=== PATIENT | female | born 1940 | race Caucasian/White ===

== ENCOUNTER 2016-10-22 10:55 | Outpatient (CLI) | payer MEDICARE, BC ==
--- NOTE | 2016-10-23 13:27 | Mammography Report ---
DIGITAL SCREENING MAMMOGRAM: 10/22/2016 CLINICAL INDICATION: A 75-year-old for screening. COMPARISON: 09/2015, 07/2014, 07/2013, 07/2012, 06/2012, 06/2011, 06/2010, 05/2009. TECHNIQUE: Routine CC and MLO projections were obtained of the breasts. FINDINGS: The breasts again demonstrate scattered fibroglandular densities bilaterally. Coarse and punctate, typically benign calcifications are present. No suspicious masses, clustered microcalcific ations, or regions of architectural distortion are identified. IMPRESSION: BENIGN FINDINGS. RECOMMENDATION: Routine annual screening unless otherwise clinically indicated. BI-RADS category 2, benign findings. STANDARD QUALIFYING STATEMENTS 1. This examination was reviewed with the aid of Computer-Aided Detection (CAD). 2. A negative or benign imaging report should not delay biopsy if clinically suspicious findings are present. Consider surgical consultation if warranted. More than 5% of cancers are not identified by i maging. 3. Dense breasts may obscure an underlying neoplasm. JOB #: [id number] EXT JOB #:[id number]
== END 2016-10-22 10:56 | disposition home or self-care (01) ==
LOC: DI 10:55
PROVIDERS: ATTEND Obstetrics & Gynecology
DX: Z12.31 Encounter for screening mammogram for malignant neoplasm of breast (principal)
CPT/HCPCS: 77067

== ENCOUNTER 2016-11-16 08:25 | Outpatient (CLI) | payer MEDICARE, BC ==
--- NOTE | 2016-11-17 13:52 | DEXA Report ---
DEXA SCAN: 11/16/2016 CLINICAL INDICATION: Osteopenia. TECHNIQUE: Dual energy x-ray absorptiometry (DXA) was performed on a [employer] system. Regions measured are the AP spine, femoral neck, and, if needed, forearm. COMPARISON: None. In accordance with the International Society for Clinical Densitometry (ISCD) guidelines, data from previous exams may be reanalyzed using current recommendations and techniques. This is done to allow a more accurate basis for comparison with the current study. FINDINGS: The data for the lumbar spine is as follows: REGION BMD (g/cm/cm) T-SCORE Z-SCORE L1 1.074 -0.5 1.3 L2 1.137 -0.5 1.2 L3 0.968 -1.9 -0.2 L4 1.079 -1.0 0.7 TOTAL 1.062 -1.0 0.8 NOTE: All evaluable vertebrae are used for classification. The data for the hip is as follows: REGION BMD (g/cm/cm) T-SCORE Z-SCORE Neck 0.760 -2.0 -0.1 TOTAL 0.844 -1.3 0.4 NOTE: The femoral neck or total proximal femur, whichever is lowest, is used for classification. IMPRESSION: THE WHO CLASSIFICATION BASED ON THE INTERNATIONAL REFERENCE STANDARD IS OSTEOPENIA. THE FRACTURE RISK IS INCREASED. RECOMMENDATION: Patients with diagnosis of osteoporosis or osteopenia should have regular bone mineral density assessment. For those eligible for Medicare, routine testing is allowed once every 2 years. Testing frequency can be increased for patients who have rapidly progressing disease or for those who are receiving medical therapy to restore bone mass. COMMENT: World Health Organization (WHO) definitions for osteoporosis and osteopenia: NORMAL BMD: T-score at -1.0 or higher, fracture risk is low. OSTEOPENIA BMD: T-score between -1.0 and -2.5, fracture risk is increased. OSTEOPOROSIS BMD: T-score at -2.5 or lower, fracture risk high. National Osteoporosis Foundation recommends: 1. Obtain adequate dietary calcium (at least 1200 mg per day) and vitamin D (400 -800 international units per day). 2. Participate, as appropriate, in regular weightbearing and muscle- strengthening exercise. 3. Avoid tobacco use and reduce alcohol and caffeine intake. 4. For more detailed information see the website at www.NOF.org. MTDD
== END 2016-11-16 08:26 | disposition home or self-care (01) ==
LOC: DI 08:25
PROVIDERS: ATTEND Internal Medicine
DX: M85.89 Other specified disorders of bone density and structure, multiple sites (principal); Z78.0 Asymptomatic menopausal state
CPT/HCPCS: 77080

== ENCOUNTER 2017-02-04 08:47 | Outpatient (CLI) | payer MEDICARE, BC ==
[2017-02-04 18:30] LABS: BASOPHILS # (AUTO) 0.1 10^3/uL (0.0-0.1); BASOPHILS % (AUTO) 0.9 %; EOSINOPHILS # (AUTO) 0.2 10^3/uL (0.0-0.7); EOSINOPHILS % (AUTO) 3.1 %; HCT - HEMATOCRIT 42.2 % (37.0-47.0); HGB - HEMOGLOBIN 13.6 g/dL (12.0-16.0); LYMPHOCYTES % (AUTO) 32.7 %; MEAN CORPUSCULAR HEMOGLOBIN 31.6 pg (27.0-31.0); MEAN CORPUSCULAR HGB CONC 32.3 g/dL (32.0-36.0); MEAN PLATELET VOLUME 8.2 fL (7.9-10.8); MONOCYTES # (AUTO) 0.4 10^3/uL (0.0-1.0); MONOCYTES % (AUTO) 6.4 %; NEUTROPHILS # (AUTO) 3.5 10^3/uL (1.5-6.6); NEUTROPHILS % (AUTO) 56.9 %; NUCLEATED RED BLOOD CELLS AUTO 0.1 /100WBC; RED BLOOD COUNT 4.31 10^6/uL (4.20-5.40); RED CELL DISTRIBUTION WIDTH 12.8 % (12.0-15.0); UNCORRECTED WHITE BLOOD COUNT 6.2 x10^3/uL; WHITE BLOOD COUNT 6.2 x10^3/uL (4.8-10.8)
[2017-02-04 18:47] LABS: ALBUMIN/GLOBULIN RATIO 1.4 (1.0-2.2); BILIRUBIN,TOTAL 0.8 mg/dL (0.2-1.0); BUN - BLOOD UREA NITROGEN 19 mg/dL (6-20); CALCIUM 10.1 mg/dL (8.5-10.3); CARBON DIOXIDE - CO2 26 mmol/L (21-32); CHLORIDE 106 mmol/L (101-111); CHOL/HDL RATIO 2.1 (<4.4); CHOLESTEROL 165 mg/dL; CREATININE 0.6 mg/dL (0.4-1.0); GFR - MDRD 98 (>89); GLUCOSE 90 mg/dL (70-100); HDL CHOLESTEROL 77 mg/dL; LDL/HDL RATIO 0.9 (<4.4); SODIUM 139 mmol/L (135-145); TOTAL PROTEIN 7.4 g/dL (6.7-8.2); TRIGLYCERIDES 111 mg/dL; VLDL CHOLESTEROL 22 mg/dL
[2017-02-04 19:27] LABS: NP AUTO DIFFERENTIAL? NO; NP MAN DIFFERENTIAL? YES; PLATELET ESTIMATE, MANUAL NORMAL (130-450,000) (NORMAL); PLATELET MORPHOLOGY NORMAL APPEARANCE (NORMAL)
== END 2017-02-04 08:48 | disposition home or self-care (01) ==
LOC: LAB.F 08:47
PROVIDERS: ATTEND Family Medicine
DX: M85.80 Other specified disorders of bone density and structure, unspecified site (principal); E78.5 Hyperlipidemia, unspecified; K21.9 Gastro-esophageal reflux disease without esophagitis
CPT/HCPCS: 36415; 80053; 80061; 82306; 84443; 85025

== ENCOUNTER 2017-08-24 06:44 | Day surgery (SDC) | payer MEDICARE, BC ==
[2017-08-24] MEDS ORDERED: LACTATED RINGERS 1,000 ML IV ONE (07:25)
[2017-08-24] MEDS ORDERED: fentaNYL 250 MCG/5 ML VIAL IVP ONE (08:01)
[2017-08-24] MEDS ORDERED: MIDAZOLAM 2 MG/2 ML VIAL IVP ONE (08:01)
[2017-08-24] MEDS ORDERED: SCOPOLAMINE PATCH TOP ONE (09:43)
[2017-08-24] MEDS ORDERED: ONDANSETRON ODT 4 MG TABLET ONE (09:43)
[2017-08-24 09:49] VITALS: BP 116/70
== END 2017-08-24 06:45 | disposition home or self-care (01) ==
LOC: SDS 06:44
PROVIDERS: ATTEND Surgery
PROC: 0DBN8ZZ Excision of Sigmoid Colon, Via Natural or Artificial Opening Endoscopic (ICD-10-PCS; 2017-08-24)
PROC: 0DBM8ZZ Excision of Descending Colon, Via Natural or Artificial Opening Endoscopic (ICD-10-PCS; principal; 2017-08-24 08:00)
DX: K59.00 Constipation, unspecified (principal); K21.9 Gastro-esophageal reflux disease without esophagitis; D12.4 Benign neoplasm of descending colon; D12.5 Benign neoplasm of sigmoid colon; K64.4 Residual hemorrhoidal skin tags; K57.30 Diverticulosis of large intestine without perforation or abscess without bleeding; K44.9 Diaphragmatic hernia without obstruction or gangrene; E78.5 Hyperlipidemia, unspecified; Z86.010 Personal history of colon polyps; Z79.899 Other long term (current) drug therapy
CPT/HCPCS: 45380; J3010; J3490; J7120; Q0162

== ENCOUNTER 2017-09-11 19:30 | Emergency (ER) | payer MEDICARE, BC ==
[2017-09-11 19:42] VITALS: BP 144/64
--- NOTE | 2017-09-11 20:00 | ED Physician Documentation ---
History of Present Illness - Stated complaint Stated Complaint: BEE STING/ALLERGIC - Chief complaint Chief Complaint: Allergic Rx - History obtained from History obtained from: Patient, Family - History of Present Illness Timing: Today (She was stung by a bee or wasp to the left lateral chest wall/ flank at about 7 PM. She has localized pain. She kind of feels funny, and has very mild chest tightness but denies wheezing, throat swelling, shortness of breath or dizziness. She says many years ago she was stung by bee and was brought in by aid car, she had no symptoms of anaphylaxis but was prescribed an EpiPen.) Review of Systems Constitutional: denies: Fever, Chills Respiratory: denies: Dyspnea, Cough GI: denies: Abdominal Pain, Nausea, Vomiting PD PAST MEDICAL HISTORY - Past Medical History Past Medical History: Yes Cardiovascular: High cholesterol Respiratory: None Endocrine/Autoimmune: None GI: GERD : None HEENT: Macular degeneration Psych: None Musculoskeletal: None Derm: None - Past Surgical History Past Surgical History: No - Present Medications Home Medications: Ambulatory Orders Medication Instructions Recorded Confirmed Estradiol [Estrogel] 50 gm TD DAILY 01/30/13 08/23/17 Ibuprofen [Motrin] 600 mg PO Q6H PRN #30 tab 01/30/13 08/23/17 Atorvastatin Calcium 20 mg PO DAILY 08/23/17 08/23/17 raNITIdine [Zantac] 150 mg PO DAILY 08/23/17 08/23/17 - Allergies Allergies/Adverse Reactions: Allergies Allergy/AdvReac Type Severity Reaction Status Date / Time bee venom protein (honey bee) Allergy Hives Verified 09/11/17 19:43 Penicillins Allergy Respiratory Verified 08/23/17 12:33 rabeprazole sodium * Allergy Edema Verified 08/23/17 12:33 [From Aciphex] Sulfa (Sulfonamide Allergy Rash Verified 08/23/17 12:33 Antibiotics) - Social History Does the pt smoke?: No Smoking Status: Never smoker Does the pt have substance abuse?: No - POLST Patient has POLST: No PD ED PE NORMAL - Vitals Vital signs reviewed: Yes - General General: Alert and oriented X 3, No acute distress - HEENT HEENT: Pharynx benign - Cardiac Cardiac: RRR, No murmur - Respiratory Respiratory: No respiratory distress, Clear bilaterally - Abdomen Abdomen: Non tender - Derm Derm: Other (To the left mid to posterior axillary line, around T8 there is a red area from the sting that is about the size of my thumb.) - Neuro Neuro: Alert and oriented X 3, Normal speech - Psych Psych: Normal mood, Normal affect Results - Vitals Vitals: Vital Signs - 24 hr 09/11/17 19:35 Temperature 36.7 C Heart Rate 64 Respiratory 16 Rate Blood Pressure 144/64 H O2 Saturation 100 Oxygen O2 Source Room air - EKG (time done) 2000 Rate: Rate (enter#) (63) Rhythm: NSR Harbert: Normal Intervals: Normal ID QRS: Normal Ischemia: Non specific changes. No: ST elevation c/w ischemia Computer interpretation: Agree with computer PD MEDICAL DECISION MAKING - ED course ED course: She has a localized allergic reaction to bee sting. I reassured her that no specific treatment is necessary. She has very mild chest tightness which I believe is from anxiety more than anything else as there are no other findings consistent with anaphylaxis. An EKG is ordered and done. - Sepsis Event Vital Signs: Vital Signs - 24 hr 09/11/17 19:35 Temperature 36.7 C Heart Rate 64 Respiratory 16 Rate Blood Pressure 144/64 H O2 Saturation 100 Oxygen O2 Source Room air Departure - Departure Disposition: 01 Home, Self Care Clinical Impression: Wasp sting Qualifiers: Encounter type: initial encounter Injury intent: accidental or unintentional Qualified Code(s): T63.461A - Toxic effect of venom of wasps, accidental ( unintentional), initial encounter Condition: Good Record reviewed to determine appropriate education?: Yes Instructions: ED Bite Sting Insect Local Allergic React Comments: Your blood pressure was elevated today on check into the emergency department. This does not mean that you have hypertension, it is a common phenomenon to come to the emergency department and have elevated blood pressure. I recommend that you see your primary care physician within the week to have it rechecked when you are feeling better. Discharge Date/Time: 09/11/17 20:04
== END 2017-09-11 20:04 | disposition home or self-care (01) ==
LOC: ED 19:30
DX: T63.441A Toxic effect of venom of bees, accidental (unintentional), initial encounter (principal); E78.00 Pure hypercholesterolemia, unspecified; K21.9 Gastro-esophageal reflux disease without esophagitis; R03.0 Elevated blood-pressure reading, without diagnosis of hypertension
CPT/HCPCS: 93005; 99282; 99283

== ENCOUNTER 2017-11-23 08:33 | Outpatient (CLI) | payer MEDICARE, BC ==
--- NOTE | 2017-11-24 14:35 | Mammography Report ---
Reason: BILAT SCREEN w CHONG Procedure Date: 11/23/2017 Accession Number: [id number] / [id number] Procedure: [facility] - Screening Mammo w/Chong CPT Code: FULL RESULT: EXAM: Screening Mammo w/Chong DATE: 11/23/2017 2:17 PM CLINICAL HISTORY: 77-year-old female presents for screening mammogram. TECHNIQUE: Bilateral CC and MLO views were obtained. COMPARISON: 10/22/2016, 10/15/2015, 07/17/2014, 07/24/2013. FINDINGS: The breasts demonstrate scattered fibroglandular densities bilaterally. Typically benign coarse calcifications are again seen bilaterally. No suspicious masses, clustered microcalcifications, or regions of architectural distortion are identified. IMPRESSION: Benign findings RECOMMENDATION: Routine annual screening unless otherwise clinically indicated. BIRADS CATEGORY 2: Benign findings STANDARD QUALIFYING STATEMENTS: 1. This examination was not reviewed with the aid of Computer-Aided Detection (CAD). 2. A negative or benign imaging report should not delay biopsy if clinically suspicious findings are present. Consider surgical consultation if warrented. More than 5% of cancers are not identified by imaging. 3. Dense breasts may obscure an underlying neoplasm. 4. This examination was reviewed with the aid of 3D breast imaging (tomosynthesis).
== END 2017-11-23 08:34 | disposition home or self-care (01) ==
LOC: DI 08:33
DX: Z12.31 Encounter for screening mammogram for malignant neoplasm of breast (principal)
CPT/HCPCS: 77063; 77067

== ENCOUNTER 2018-05-20 10:45 | Outpatient (CLI) | payer MEDICARE, BC ==
--- NOTE | 2018-05-20 11:48 | XRAY Report ---
Reason: PAIN 2ND DIGIT 2ND MP JOINT RT FOOT Procedure Date: 05/20/2018 Accession Number: [id number] / [id number] Procedure: XR - Foot 3 View RT CPT Code: FULL RESULT: EXAM: RIGHT FOOT RADIOGRAPHY EXAM DATE: 05/20/2018 10:56 AM. CLINICAL HISTORY: Pain 2nd digit 2nd MP joint right foot. COMPARISON: None. TECHNIQUE: 3 views. FINDINGS: Bones: Normal. No fractures or bone lesions. No specific abnormality noted of the second digit. Joints: Mild bunion deformity of the first digit. Soft Tissues: Normal. No soft tissue swelling. IMPRESSION: Mild bunion deformity. No fracture appreciated. RADIA
== END 2018-05-20 10:46 | disposition home or self-care (01) ==
LOC: DI 10:45
PROVIDERS: ATTEND Podiatrist
DX: M21.611 Bunion of right foot (principal); M25.571 Pain in right ankle and joints of right foot

== ENCOUNTER 2018-08-29 16:34 | Outpatient (CLI) | payer MEDICARE, BC ==
--- NOTE | 2018-08-30 14:19 | XRAY Report ---
Reason: PAIN AND EDEMA BALL OF FOOT Procedure Date: 08/29/2018 Accession Number: [id number] / [id number] Procedure: XR - Foot 3 View LT CPT Code: FULL RESULT: EXAM: LEFT FOOT RADIOGRAPHY EXAM DATE: 08/29/2018 04:51 PM. CLINICAL HISTORY: Pain and edema ball of foot. Sudden onset of pain 1 week ago. Pain in space of fourth and fifth digits on the left. COMPARISON: None. TECHNIQUE: 3 views. FINDINGS: Bones: No acute fracture or bony lesion. No bony erosions or periosteal reaction. Degenerative spurring. Joints: Mild to moderate left first MTP joint degenerative change. Degenerative change of the DIP and PIP joints of the digits. No dislocation. Soft Tissues: Normal. No soft tissue swelling. IMPRESSION: 1. No acute osseous abnormalities. No radiographic evidence of stress reaction. 2. Degenerative changes of the left foot. RADIA
== END 2018-08-29 16:35 | disposition home or self-care (01) ==
LOC: DI 16:34
PROVIDERS: ATTEND Podiatrist
DX: M19.072 Primary osteoarthritis, left ankle and foot (principal)

== ENCOUNTER 2019-01-03 14:38 | Outpatient (CLI) | payer MEDICARE, BC ==
--- NOTE | 2019-01-04 09:14 | Mammography Report ---
Reason: ROUTINE MAMMO Procedure Date: 01/03/2019 Accession Number: [id number] / [id number] Procedure: [facility] - Screening Mammo w/Kwaku CPT Code: Final Report FULL RESULT: EXAM: Screening Mammo w/Kwaku DATE: 01/03/2019 3:07 PM CLINICAL HISTORY: Screening encounter. TECHNIQUE: (B) - Bilateral CC and MLO views were obtained. Right laterally exaggerated CC views obtained. COMPARISON: 11/23/2017 through 05/27/2009. PARENCHYMAL PATTERN: (A) - The breast(s) demonstrate(s) scattered fibroglandular densities. FINDINGS: There are coarse typically benign calcifications. There are no suspicious masses, calcifications, or areas of distortion. IMPRESSION: Benign findings. BI-RADS category 2. RECOMMENDATION: (ANNUAL) - Recommend routine annual screening mammography. BI-RADS CATEGORY: (2) - Benign Findings. STANDARD QUALIFYING STATEMENTS: 1. This examination was not reviewed with the aid of Computer-Aided Detection (CAD). 2. A negative or benign imaging report should not preclude biopsy if clinically suspicious findings are present. 3. Dense breasts may obscure an underlying neoplasm. 4. This examination was reviewed with the aid of 3D breast imaging (tomosynthesis).
== END 2019-01-03 14:39 | disposition home or self-care (01) ==
LOC: DI 14:38
PROVIDERS: ATTEND Family Medicine
DX: Z12.31 Encounter for screening mammogram for malignant neoplasm of breast (principal)
CPT/HCPCS: 77063; 77067

== ENCOUNTER 2019-08-31 14:29 | Outpatient (CLI) | payer MEDICARE, BC | END 2019-08-31 14:30 | disposition home or self-care (01) | LOC: RT 14:29 | PROVIDERS: ATTEND Internal Medicine Cardiovascular Disease | DX: R07.9 Chest pain, unspecified (principal) | CPT/HCPCS: 93005 ==

== ENCOUNTER 2019-10-18 10:28 | Outpatient (CLI) | payer MEDICARE, OTHER ==
--- NOTE | 2019-10-18 12:53 | CARDIAC PROCEDURE NOTE ---
DATE OF SERVICE: 10/18/2019 Physician: Anita Dominguez MD, [facility] INDICATION: Chest pain, shortness of breath. CARDIAC RISK FACTORS: Postmenopausal status, hyperlipidemia, family history of heart disease. DESCRIPTION OF PROCEDURE: After signing informed consent, the patient underwent a Harshil-protocol treadmill stress test with Echo imaging at rest and post- exercise. RESTING HEART RATE: 57. PEAK HEART RATE: 128 (88% predicted maximum heart rate for age). RESTING BLOOD PRESSURE: 131/76. PEAK BLOOD PRESSURE: 191/65. The patient exercised for 5 minutes on a Harshil-protocol treadmill stress test. She achieved a peak heart rate of 128 (88% PMHR) and 7.1 METS. The patient had fatigue and moderate shortness of breath and reported her perceived exertion at 16/20 on the Maritza scale at peak. She had no chest pain. Oxygen saturation was 95-97% on room air throughout the test. RESTING EKG: Sinus bradycardia, rate 57, occasional PVCs. During the treadmill test, the patient had 2 long runs of ventricular trigeminy, that each lasted approximately 1 minute. EKG AT PEAK: No new ST segment or T-wave changes develop. There are PVCs in a trigeminy pattern and 1 ventricular couplet at peak. Rhythm in recovery showed rare PVCs, sinus arrhythmia and an atrial couplet. EKG AT the 5-minute kamilla after exercise showed new T-wave flattening in leads III and V3-V6. SUMMARY 1. Abnormal resting EKG. 2. No ischemic changes developed by EKG criteria at a good level of stress. 3. Ventricular ectopy as described above was seen. 4. Late T-wave changes are noted after exercise. 5. Echo images reported separately. 6. This patient's cardiac risk based on all the above: High. cc: MD Kamilla Chen MD TD: 10/18/2019 12:44 [facility]
== END 2019-10-18 10:29 | disposition home or self-care (01) ==
LOC: DI 10:28
PROVIDERS: ATTEND Internal Medicine Cardiovascular Disease
DX: R94.31 Abnormal electrocardiogram [ECG] [EKG] (principal); R00.1 Bradycardia, unspecified; R00.8 Other abnormalities of heart beat; R06.02 Shortness of breath; R53.83 Other fatigue; Z78.0 Asymptomatic menopausal state; E78.5 Hyperlipidemia, unspecified; Z82.49 Family history of ischemic heart disease and other diseases of the circulatory system
CPT/HCPCS: 93016; 93018; 93350

== ENCOUNTER 2020-07-04 08:04 | Outpatient (CLI) | payer MEDICARE, OTHER ==
--- NOTE | 2020-07-05 09:12 | Mammography Report ---
BILATERAL DIGITAL SCREENING MAMMOGRAM 3D/2D: 07/04/2020 CLINICAL: Routine screening. Comparison is made to exams dated: 01/03/2019 mammogram, 11/23/2017 mammogram, 10/22/2016 mammogram, mammogram, 07/17/2014 mammogram, and 07/24/2013 mammogram - [facility]. There are scattered fibroglandular elements in both breasts. No significant masses, calcifications, or other findings are seen in either breast. There has been no significant interval change. IMPRESSION: NEGATIVE There is no mammographic evidence of malignancy. A 1 year screening mammogram is recommended. This exam was interpreted at Station ID: [id number]. NOTE: For mammograms, a report in lay terms will be sent to the patient. Approximately 15% of breast malignancies will not be visualized mammographically. In the management of a palpable breast mass, a negative mammogram must not discourage biopsy of a clinically suspicious lesion. Electronically Signed By: Selwyn rubio/gael:07/04/2020 09:51:29 ACR BI-RADS Category 1: Negative 3341F PARENCHYMAL PATTERN: (A) - The breast(s) demonstrate(s) scattered fibroglandular densities. BI-RADS CATEGORY: (1) - 1 RECOMMENDATION: (ANNUAL) - Recommend routine annual screening mammography. [id number] 1 year screening LATERALITY: (B)
== END 2020-07-04 08:05 | disposition home or self-care (01) ==
LOC: DI 08:04
DX: Z12.31 Encounter for screening mammogram for malignant neoplasm of breast (principal)

== ENCOUNTER 2021-01-24 14:08 | Outpatient (CLI) | payer MEDICARE, OTHER | END 2021-01-24 14:09 | disposition home or self-care (01) | LOC: DI 14:08 | PROVIDERS: ATTEND Nurse Practitioner Family | DX: Z53.9 Procedure and treatment not carried out, unspecified reason (principal) ==

== ENCOUNTER 2021-07-08 08:46 | Outpatient (CLI) | payer MEDICARE, OTHER ==
--- NOTE | 2021-07-08 13:50 | Mammography Report ---
BILATERAL DIGITAL SCREENING MAMMOGRAM 3D/2D WITH EXAGGERATED CC: 07/08/2021 CLINICAL: Routine screening. Comparison is made to exams dated: 07/04/2020 mammogram, 01/03/2019 mammogram, 11/23/2017 mammogram, mammogram, 10/15/2015 mammogram, and 07/17/2014 mammogram - [facility]. There are scattered fibroglandular elements in both breasts. There are benign calcifications in both breasts. No significant masses, calcifications, or other findings are seen in either breast. There has been no significant interval change. IMPRESSION: BENIGN There is no mammographic evidence of malignancy. A 1 year screening mammogram is recommended. This exam was interpreted at Station ID: [id number]. NOTE: For mammograms, a report in lay terms will be sent to the patient. Approximately 15% of breast malignancies will not be visualized mammographically. In the management of a palpable breast mass, a negative mammogram must not discourage biopsy of a clinically suspicious lesion. Electronically Signed By: Michi Broderick acr/penrad:07/08/2021 09:37:26 ACR BI-RADS Category 2: Benign Finding(s) 3342F PARENCHYMAL PATTERN: (A) - The breast(s) demonstrate(s) scattered fibroglandular densities. BI-RADS CATEGORY: (2) - 2 RECOMMENDATION: (ANNUAL) - Recommend routine annual screening mammography. [id number] 1 year screening LATERALITY: (B)
== END 2021-07-08 08:47 | disposition home or self-care (01) ==
LOC: DI.S 08:46
DX: Z12.31 Encounter for screening mammogram for malignant neoplasm of breast (principal)

== ENCOUNTER 2021-07-15 10:53 | Emergency (ER) | payer MEDICARE, OTHER ==
[2021-07-15 11:29] LABS: BASOPHILS # (AUTO) 0.1 10^3/uL (0.0-0.1); BASOPHILS % (AUTO) 0.8 %; EOSINOPHILS # (AUTO) 0.2 10^3/uL (0.0-0.7); EOSINOPHILS % (AUTO) 2.5 %; HGB - HEMOGLOBIN 12.7 g/dL (12.0-16.0); LYMPHOCYTES # (AUTO) 2.1 10^3/uL (1.5-3.5); LYMPHOCYTES % (AUTO) 28.8 %; MEAN CORPUSCULAR HEMOGLOBIN 32.2 pg (27.0-31.0); MEAN CORPUSCULAR HGB CONC 31.8 g/dL (32.0-36.0); MEAN CORPUSCULAR VOLUME 101.3 fL (81.0-99.0); MEAN PLATELET VOLUME 9.4 fL (7.9-10.8); MONOCYTES # (AUTO) 0.5 10^3/uL (0.0-1.0); MONOCYTES % (AUTO) 6.3 %; NEUTROPHILS # (AUTO) 4.5 10^3/uL (1.5-6.6); NEUTROPHILS % (AUTO) 61.2 %; PLT - PLATELET COUNT 238 10^3/uL (130-450); RED BLOOD COUNT 3.95 10^6/uL (4.20-5.40); RED CELL DISTRIBUTION WIDTH 12.2 % (12.0-15.0); WHITE BLOOD COUNT 7.3 x10^3/uL (4.8-10.8)
[2021-07-15 11:43] LABS: ALBUMIN 4.1 g/dL (3.2-5.5); ALBUMIN/GLOBULIN RATIO 1.4 (1.0-2.2); BILIRUBIN,TOTAL 0.7 mg/dL (0.2-1.0); CALCIUM 10.2 mg/dL (8.5-10.3); CREATININE 0.6 mg/dL (0.4-1.0); TOTAL PROTEIN 7.1 g/dL (6.7-8.2)
--- NOTE | 2021-07-15 12:07 | XRAY Report ---
PROCEDURE: Chest 1 View X-Ray INDICATIONS: Chest pain TECHNIQUE: One view of the chest was acquired. COMPARISON: 01/17/2015 FINDINGS: Surgical changes and devices: None. Lungs and pleura: No pleural effusions or pneumothorax. Lungs are clear. Elevated or eventrated ri ght hemidiaphragm Mediastinum: Mediastinal contours appear normal. Heart size is normal. Bones and chest wall: No suspicious bony lesions. Overlying soft tissues appear unremarkable. IMPRESSION: Hemidiaphragm eventration. No acute cardiopulmonary findings Reviewed by: Jovan Moreno MD on 07/15/2021 11:06 AM HANY Approved by: Jovan Moreno MD on 07/15/2021 11:06 AM HANY Station ID: [id number]
[2021-07-15] MEDS ORDERED: KETOROLAC 30 MG/ML VIAL IVP STA (13:05)
--- NOTE | 2021-07-15 13:45 | ED Physician Documentation ---
History of Present Illness - Stated complaint Stated Complaint: FEELING UNWELL - Chief complaint Chief Complaint: General - Additonal information Additional information: 80-year-old female presents emergency department for evaluation of back pain and feeling generally unwell. She reports that she woke up this morning and felt a flushing sensation and pinching pain in her back that lasted about 30 minutes. She has never had this before. She did a Google search and became concerned that she could have coronary artery disease or heart attack therefore she comes to the emergency department. At the time that she presents here she admits that she is rather anxious but denies that she is having the same symptoms of pain that she did this morning. She is not short of breath and she is denying anterior chest pain. 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 She has had no fevers, recent travel, surgery or unilateral leg swelling. She is on estradiol for menopausal and overactive bladder symptoms. Review of Systems Constitutional: denies: Fever, Chills Eyes: reports: Reviewed and negative Ears: reports: Reviewed and negative Nose: reports: Reviewed and negative Cardiac: denies: Chest pain / pressure, Palpitations, Pedal edema, Calf pain Respiratory: reports: Reviewed and negative GI: reports: Reviewed and negative : reports: Reviewed and negative Skin: reports: Reviewed and negative Musculoskeletal: reports: Back pain Neurologic: reports: Reviewed and negative PD PAST MEDICAL HISTORY - Past Medical History Past Medical History: Yes Cardiovascular: High cholesterol Respiratory: None Endocrine/Autoimmune: None GI: GERD : None HEENT: Macular degeneration Psych: None Musculoskeletal: None Derm: None - Past Surgical History Past Surgical History: No - Present Medications Home Medications: Ambulatory Orders Medication Instructions Recorded Confirmed Atorvastatin Calcium 20 mg PO DAILY 08/23/17 07/15/21 - Allergies Allergies/Adverse Reactions: Allergies Allergy/AdvReac Type Severity Reaction Status Date / Time bee venom protein (honey bee) Allergy Hives Verified 07/15/21 11:04 Penicillins Allergy Respiratory Verified 07/15/21 11:04 rabeprazole sodium * Allergy Edema Verified 07/15/21 11:04 [From Aciphex] Sulfa (Sulfonamide Allergy Rash Verified 07/15/21 11:04 Antibiotics) - Social History Does the pt smoke?: No Smoking Status: Never smoker Does the pt drink ETOH?: Yes Does the pt have substance abuse?: No - Immunizations Immunizations are current?: Yes - POLST Patient has POLST: No PD ED PE NORMAL - General General: Alert and oriented X 3, No acute distress, Well developed/nourished - HEENT HEENT: Atraumatic, Ears normal, Moist mucous membranes - Neck Neck: Supple, no meningeal sign, No adenopathy - Cardiac Cardiac: RRR, No murmur - Respiratory Respiratory: No respiratory distress, Clear bilaterally - Abdomen Abdomen: Normal bowel sounds, Soft - Back Back: No CVA TTP, No spinal TTP, Other (Unable to elicit the same back pain or back tenderness with movement percussion or palpation.) - Derm Derm: Normal color, Warm and dry - Extremities Extremities: No deformity - Neuro Neuro: Alert and oriented X 3, 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 Eye Opening: Spontaneous Motor: Obeys Commands Verbal: Oriented GCS Score: 15 Results - Vitals Vitals: Vital Signs - 24 hr 07/15/21 07/15/21 11:06 12:43 Temperature 37.2 C Heart Rate 60 70 Respiratory 19 22 Rate Blood Pressure 171/47 H 155/109 H O2 Saturation 99 97 Oxygen O2 Source Room air - EKG (time done) 1112 Rate: Rate (enter#) (70) Rhythm: NSR, Other (Frequent unifocal PVCs) Reading: Normal Intervals: Normal DC QRS: Normal Ischemia: Normal ST segments Compare to prior EKG: Unchanged from prior EKG Computer interpretation: Agree with computer - Labs Labs: Laboratory Tests 07/15/21 07/15/21 07/15/21 11:22 11:22 11:22 WBC 7.3 RBC 3.95 L Hgb 12.7 Hct 40.0 MCV 101.3 H MCH 32.2 H MCHC 31.8 L RDW 12.2 Plt Count 238 MPV 9.4 Neut # (Auto) 4.5 Lymph # (Auto) 2.1 [place] # (Auto) 0.5 Eos # (Auto) 0.2 Baso # (Auto) 0.1 Absolute Nucleated RBC 0.00 Nucleated RBC % 0.0 Sodium 135 Potassium 4.0 Chloride 102 Carbon Dioxide 25 Anion Gap 8.0 BUN 20 Creatinine 0.6 Estimated GFR (MDRD) 97 Glucose 98 Calcium 10.2 Total Bilirubin 0.7 AST 21 ALT 16 Alkaline Phosphatase 72 Troponin I High Sens 4.0 Total Protein 7.1 Albumin 4.1 Globulin 3.0 Albumin/Globulin Ratio 1.4 Lipase 34 - Rads (name of study) cxr Radiology: Final report received (Hemidiaphragm elevation. No acute cardiopulmonary findings) PD MEDICAL DECISION MAKING - ED course Complexity details: considered differential, d/w patient ED course: 80-year-old female presents emergency department for evaluation of back pain that she noted when she woke up this morning. She had a flushing sensation the symptoms lasted for about 30 minutes. She became overly concerned about coronary artery disease/ACS. Review of the chart reveals that she had a reassuring stress test in 2019. Today her EKG is unchanged from previous though there are some unifocal PVCs. Screening labs, CBC and high-sensitivity troponin are negative. Chest x-ray does show some right hemidiaphragm elevation but no other acute cardiopulmonary findings. My suspicion for acute ACS is rather low. Her heart score is 2. I did briefly consider pulmonary embolus given that she is on estradiol but she is not hypoxic and denies any shortness of air. Given the national shortage of contrast will defer CT pulmonary angiogram. Also defer to D-dimer today as my suspicion is low though we did discuss that if her symptoms worsen or return she should return to the ER. She was given a dose of Toradol here in the emergency department for possibility of musculoskeletal pain. On reevaluation her symptoms are improved. She is discharged home. Encourage close follow-up with her primary care provider emergent return precautions otherwise discussed Departure - Departure Disposition: Home, Self Care Clinical Impression: Back pain Qualifiers: Back pain location: thoracic back pain Chronicity: unspecified Back pain laterality: unspecified Qualified Code(s): M54.6 - Pain in thoracic spine Comments: Jacque I wish you luck with your gardening this spring and summer. You are seen today in the emergency department because you had developed some back pain that made you concerned for heart disease. Your EKG today is essentially unchanged from your most recent one in 2020. Your screening labs, blood count electrolytes and troponin are all normal. As we discussed I have very little suspicion that the cause of your pain was cardiac. You are on estrogen which is a hormone and can increase your risk for blood clots. However with few other risk factors, no decreased oxygen levels or shortness of air I think it is very unlikely that you have a blood clot in your lungs. It is possible that you have simply overexerted yourself with your gardening. I do recommend that you take some Tylenol or ibuprofen over the next few days. If you find that your symptoms are worsening, you develop any chest pain, have shortness of air or any fainting episodes you should return to the emergency department. Please discuss this ED visit with your primary care provider as soon as you are able.
[2021-07-15 13:59] VITALS: BP 152/70
== END 2021-07-15 14:06 | disposition home or self-care (01) ==
LOC: ED 10:53
DX: M54.6 Pain in thoracic spine (principal)
CPT/HCPCS: 36415; 80053; 83690; 84484; 85025; 93005; 96374; 99284

== ENCOUNTER 2021-11-01 08:00 | Outpatient (CLI) | payer MEDICARE, OTHER | END 2021-11-01 23:59 | disposition home or self-care (01) | LOC: LAB 08:00 | PROVIDERS: ATTEND Student in an Organized Health Care Education/Training Program | DX: E83.52 Hypercalcemia (principal) | CPT/HCPCS: 81599; 82340; 82570 ==

== ENCOUNTER 2022-02-17 10:53 | Outpatient (CLI) | payer MEDICARE, OTHER ==
--- NOTE | 2022-02-17 14:16 | XRAY Report ---
PROCEDURE: Ribs Bilat w/Chest 4 View INDICATIONS: CHEST WALL PAIN TECHNIQUE: 2 views of the right and left ribs were acquired, along with a single view chest. COMPARISON: Chest radiograph 07/15/2021 FINDINGS: Surgical changes and devices: None. Bones and chest wall: No acute displaced rib fracture identified. Few remote right rib fractures red emonstrated. Lungs and pleura: No pleural effusions or pneumothorax. Elevation of the right hemidiaphragm. No con solidation visualized. Mediastinum: Cardiac silhouette is at the upper limits of normal in size. IMPRESSION: No acute displaced rib fracture identified. CT of the chest could be obtained for further evaluation if clinically indicated. No pneumothorax visualized. Reviewed by: Randolph Gill MD on 02/17/2022 2:14 PM PST Approved by: Randolph Gill MD on 02/17/2022 2:14 PM PST Station ID: [id number]
== END 2022-02-17 10:54 | disposition home or self-care (01) ==
LOC: DI.S 10:53
PROVIDERS: ATTEND Emergency Medicine
DX: R07.89 Other chest pain (principal)

== ENCOUNTER 2022-06-10 07:00 | Outpatient (CLI) | payer MEDICARE, OTHER ==
--- NOTE | 2022-06-10 12:22 | XRAY Report ---
PROCEDURE: Chest 2 View X-Ray INDICATIONS: CHEST CONGESTION TECHNIQUE: 2 views of the chest were acquired. COMPARISON: 07/15/2021. FINDINGS: Surgical changes and devices: None. Lungs and pleura: No pleural effusions or pneumothorax. Mild pulmonary vascular congestion is seen. No focal infiltrate. Mediastinum: Mediastinal contours appear normal. Heart size is enlarged. Bones and chest wall: No suspicious bony lesions. Overlying soft tissues appear unremarkable. IMPRESSION: Cardiomegaly and mild congestion. No focal infiltrate, pleural effusion or pneumothorax. Reviewed by: Mainor Linares MD on 06/10/2022 12:21 PM PDT Approved by: Mainor Linares MD on 06/10/2022 12:21 PM PDT Station ID: [id number]
== END 2022-06-10 23:59 | disposition home or self-care (01) ==
LOC: DI.S 07:00
PROVIDERS: ATTEND Physician Assistant Medical
DX: R09.89 Other specified symptoms and signs involving the circulatory and respiratory systems (principal); R05.3 Chronic cough; I51.7 Cardiomegaly

== ENCOUNTER 2022-07-09 08:33 | Outpatient (CLI) | payer MEDICARE, OTHER ==
--- NOTE | 2022-07-10 09:33 | Mammography Report ---
BILATERAL DIGITAL SCREENING MAMMOGRAM 3D/2D: 07/09/2022 CLINICAL: Routine screening. Comparison is made to exams dated: 07/08/2021 mammogram, 07/04/2020 mammogram, 01/03/2019 mammogram, a nd 11/23/2017 mammogram - [facility]. There are scattered areas of fibroglandular density in both breasts (category b / 25%-50% glandular t issue). There are benign calcifications in both breasts. No significant masses, calcifications, or other findings are seen in either breast. There has been no significant interval change. IMPRESSION: BENIGN There is no mammographic evidence of malignancy. A 1 year screening mammogram is recommended. Based on the Tyrer Cuzick model (a risk assessment model) the patients lifetime risk is 2.1% and her 10 year risk is 0.0%. According to the ACR, ACS, and NCCN guidelines, an annual breast MRI exam link g with mammogram is recommended if the patients lifetime risk is 20% or greater. This exam was interpreted at Station ID: [id number]. NOTE: For mammograms, a report in lay terms will be sent to the patient. Approximately 15% of breast malignancies will not be visualized mammographically. In the management of a palpable breast mass, a negative mammogram must not discourage biopsy of a clinically suspicious lesion. Electronically Signed By: Florentin fish/gael:07/09/2022 11:10:15 letter sent: No_Letter ACR BI-RADS Category 2: Benign Finding(s) 3342F PARENCHYMAL PATTERN: (A) - The breast(s) demonstrate(s) scattered fibroglandular densities. BI-RADS CATEGORY: (2) - 2 Mammogram [id number] 1 year screening LATERALITY: (B)
== END 2022-07-09 08:34 | disposition home or self-care (01) ==
LOC: DI 08:33
PROVIDERS: ATTEND Family Medicine
DX: Z12.31 Encounter for screening mammogram for malignant neoplasm of breast (principal)

== ENCOUNTER 2023-07-02 15:53 | Outpatient (CLI) | payer MEDICARE, OTHER | END 2023-07-02 15:54 | disposition home or self-care (01) | LOC: LAB 15:53 | PROVIDERS: ATTEND Emergency Medicine | DX: N30.00 Acute cystitis without hematuria (principal); R30.0 Dysuria | CPT/HCPCS: 87086 ==

== ENCOUNTER 2023-07-06 10:31 | Emergency (ER) | payer MEDICARE, OTHER ==
--- NOTE | 2023-07-06 11:24 | ED Physician Documentation ---
History of Present Illness - Stated complaint Stated Complaint: LOW HR - Chief complaint Chief Complaint: Cardiac - History obtained from History obtained from: Patient - Additonal information Additional information: 82-year-old woman with history of cardiomyopathy, last EF of 48%. Recently changed her metoprolol from 25 long-acting twice daily to 50 long-acting at night. She went to the clinic today for UTI symptoms and on the monitor she was noted to have a heart rate of 30. They did in EKG which showed her to be in bigeminy. From that perspective she is asymptomatic. She has no chest pain, trouble breathing, syncope, near syncope, dizziness. Here her heart rate is 60. The walk-in clinic did not call prior to arrival. PD PAST MEDICAL HISTORY - Past Medical History Cardiovascular: High cholesterol Respiratory: None Endocrine/Autoimmune: None GI: GERD : None HEENT: Macular degeneration Psych: None Musculoskeletal: None Derm: None - Past Surgical History Past Surgical History: No - Present Medications Home Medications: Ambulatory Orders Medication Instructions Recorded Confirmed Atorvastatin Calcium 20 mg PO DAILY 08/23/17 07/15/21 Nitrofurantoin [Macrobid] 1 cap PO BID #10 cap 07/06/23 - Allergies Allergies/Adverse Reactions: Allergies Allergy/AdvReac Type Severity Reaction Status Date / Time bee venom protein (honey bee) Allergy Hives Verified 07/06/23 11:04 rabeprazole sodium * Allergy Edema Verified 07/06/23 11:04 [From Aciphex] Sulfa (Sulfonamide Allergy Rash Verified 07/06/23 11:04 Antibiotics) - Social History Does the pt smoke?: No Smoking Status: Never smoker Does the pt drink ETOH?: Yes Does the pt have substance abuse?: No - Immunizations Immunizations are current?: Yes - POLST Patient has POLST: No PD ED PE NORMAL - Vitals Vital signs reviewed: Yes - General General: Alert and oriented X 3, No acute distress - HEENT HEENT: PERRL, EOMI - Cardiac Cardiac: RRR, No murmur - Respiratory Respiratory: No respiratory distress, Clear bilaterally - Abdomen Abdomen: Non tender - Neuro Neuro: Alert and oriented X 3, Normal speech Results - Vitals Vitals: Vital Signs - 24 hr 07/06/23 07/06/23 10:52 12:21 Temperature 36.2 C L Heart Rate 61 62 Respiratory 16 14 Rate Blood Pressure 144/50 H 151/62 H O2 Saturation 100 97 Oxygen O2 Source Room air - EKG (time done) 1111 EKG releavant findings:: EKG personally interpreted by author of this note. Relevant findings are: Rate: Rate (enter#) (60) Rhythm: NSR (With single PVC) [place]: Normal Intervals: Normal CA QRS: Normal Ischemia: Normal ST segments - Labs Labs: Laboratory Tests 07/06/23 07/06/23 12:09 12:09 WBC 6.9 RBC 4.16 L Hgb 13.0 Hct 42.0 MCV 101.0 H MCH 31.3 H MCHC 31.0 L RDW 12.2 Plt Count 234 MPV 9.3 Neut # (Auto) 4.5 Lymph # (Auto) 1.6 [place] # (Auto) 0.5 Eos # (Auto) 0.2 Baso # (Auto) 0.1 Absolute Nucleated RBC 0.00 Nucleated RBC % 0.0 Sodium 140 Potassium 4.4 Chloride 107 Carbon Dioxide 29 Anion Gap 4.0 L BUN 19 Creatinine 0.7 Estimated GFR (MDRD) 81 L Glucose 97 Calcium 10.8 H Magnesium 2.1 Total Bilirubin 0.5 AST 21 ALT 18 Alkaline Phosphatase 75 Total Protein 6.9 Albumin 4.3 Globulin 2.6 Albumin/Globulin Ratio 1.7 PD Medical Decision Making - ED course ED course: She had asymptomatic bigeminy at the clinic. Here her EKG shows occasional PVCs but for the most part normal sinus rhythm on the monitor. We will check her electrolytes, but there is no emergency medical condition. And we will start her on Macrobid for her cystitis. Departure - Departure Disposition: Home, Self Care Clinical Impression: PVC's (premature ventricular contractions), Cystitis Condition: Good Record reviewed to determine appropriate education?: Yes Instructions: Premature Ventricular Contract About Prescriptions: Nitrofurantoin [Macrobid] 1 cap PO BID #10 cap Comments: You were seen today for frequent premature ventricular contractions (early beats) of your heart. 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 Return if you develop any symptoms such as dizziness, lightheadedness, shortness of breath, chest pain, or passing out. Your electrolytes were fine with the exception of your calcium level was just borderline high. Your primary care physician needs to keep an eye on this. Please follow-up with them as well. Forms: PCP List
[2023-07-06] MEDS: NITROFURANTOIN MACRO 100 MG CAPSULE PO STA (11:29)
[2023-07-06 12:15] LABS: BASOPHILS # (AUTO) 0.1 10^3/uL (0.0-0.1); BASOPHILS % (AUTO) 0.9 %; EOSINOPHILS # (AUTO) 0.2 10^3/uL (0.0-0.7); EOSINOPHILS % (AUTO) 2.8 %; LYMPHOCYTES # (AUTO) 1.6 10^3/uL (1.5-3.5); LYMPHOCYTES % (AUTO) 23.8 %; MEAN CORPUSCULAR HEMOGLOBIN 31.3 pg (27.0-31.0); MEAN PLATELET VOLUME 9.3 fL (7.9-10.8); MONOCYTES # (AUTO) 0.5 10^3/uL (0.0-1.0); MONOCYTES % (AUTO) 6.8 %; NEUTROPHILS # (AUTO) 4.5 10^3/uL (1.5-6.6); NEUTROPHILS % (AUTO) 65.4 %; PLT - PLATELET COUNT 234 10^3/uL (130-450); RED BLOOD COUNT 4.16 10^6/uL (4.20-5.40); RED CELL DISTRIBUTION WIDTH 12.2 % (12.0-15.0); WHITE BLOOD COUNT 6.9 x10^3/uL (4.8-10.8)
[2023-07-06 12:26] LABS: MAGNESIUM 2.1 mg/dL (1.7-2.3)
[2023-07-06 12:32] LABS: ALBUMIN 4.3 g/dL (3.2-5.5); ALBUMIN/GLOBULIN RATIO 1.7 (1.0-2.2); BILIRUBIN,TOTAL 0.5 mg/dL (0.2-1.0); CALCIUM 10.8 mg/dL (8.5-10.3); CREATININE 0.7 mg/dL (0.6-1.3); POTASSIUM 4.4 mmol/L (3.5-4.5); TOTAL PROTEIN 6.9 g/dL (6.4-8.9)
[2023-07-06 12:57] VITALS: BP 136/75; O2SAT 100
== END 2023-07-06 12:47 | disposition home or self-care (01) ==
LOC: ED 10:31
DX: I49.3 Ventricular premature depolarization (principal); N30.90 Cystitis, unspecified without hematuria; E78.00 Pure hypercholesterolemia, unspecified; Z79.899 Other long term (current) drug therapy
CPT/HCPCS: 36415; 80053; 83735; 85025; 93005; 99284; A9270

== ENCOUNTER 2023-07-23 08:00 | Outpatient (CLI) | payer MEDICARE, OTHER | END 2023-07-23 23:59 | disposition home or self-care (01) | LOC: LAB.WCP 08:00 | PROVIDERS: ATTEND Emergency Medicine | DX: N30.00 Acute cystitis without hematuria (principal) | CPT/HCPCS: 87086 ==